=== PATIENT | male | born 1995 | race Caucasian/White ===

== ENCOUNTER 2017-04-22 02:12 | Emergency (ER) | payer BC ==
[2017-04-22 02:43] VITALS: BP 138/79
[2017-04-22 02:46] LABS: Cocaine Ur Negative (NEGATIVE); Urine Barbiturate Negative (NEGATIVE); Urine Benzodiazepines Negative (NEGATIVE); Urine Opiates Negative (NEGATIVE); Urine PCP Negative (NEGATIVE); Urine THC Negative (NEGATIVE)
--- NOTE | 2017-04-22 02:50 | ERNOTE ---
Chest Pain/Cardiac HPI Chief Complaint: Palpitations Source: patient Exam Limitations: no limitations Immunizations: IMMUNIZATION HX Immunizations Up to Date No Allergies/Adverse Reactions: Allergies No Known Allergies Allergy (Unverified 04/22/17 02:18) Home Medications: HOME MEDICATIONS NK [No Home Medication] 04/22/17 [Last Taken Unknown] Narrative: here or an episode of rapid heart rate at work. Pt has had 3 caffeinated sodas and two redbulls all in the past 12 hours and he smokes. He denies any chest pains, or diaphoresis. There is no history of heart disease in his family. By the time he was seen by me he was completely symptom free. He was brought in by EMS his symptoms of rapid heart rate lasted a few minutes Review of Systems - Review of Systems Constitutional: Present: no symptoms reported EYE: Present: no symptoms reported ENT: Present: no symptoms reported Respiratory: Present: no symptoms reported Cardiology: Present: See HPI Gastrointestinal/Abdominal: Present: no symptoms reported Genitourinary: Present: no symptoms reported - Patient's Past Medical History Patient History - Cardiac/Respiratory: No pertinent hx Patient History - Cancer: No Hx of Cancer Patient History - Surgical Procedures: No surgical history - Social History Living Situations: home Smoking Status: Current every day smoker Alcohol Use: none Drug Use: none - Immunizations Immunizations Up to Date: No Physical Exam - Physical Exam General Appearance: Present: wd/wn, alert, no apparent distress Head Exam: Present: normal inspection, no evidence of injury Eye Exam: Normal inspection: bilateral, PERRL: bilateral, EOMI: bilateral Ears, Nose, Throat: Present: normal ENT inspection, normal pharynx Neck: Present: normal inspection, nontender, supple Respiratory: Present: no respiratory distress, normal breath sounds, no accessory muscle use, chest nontender, lungs clear Cardiovascular/Chest: Present: regular rate, rhythm, no murmur, normal peripheral pulses Extremity Exam: Present: normal inspection ED Progress - Results and Orders Patient's Lab Results:: I have reviewed the patient's lab results. - Vital Signs Patient's Vital Signs:: I have reviewed the patient's vital signs. Vital Signs: Vital Signs 04/22/17 04/22/17 04/22/17 02:14 02:21 02:42 Temperature 36.5 C Pulse Rate 64 59 L 68 Respiratory 16 16 Rate Blood Pressure 134/64 138/79 O2 Sat by Pulse 99 100 Oximetry - EKG EKG Comments: NSR - Progress/Reassessment Chief Complaint: Palpitations Plan - Plan Plan: This patient had transient symptoms of rapid heartbeat which has completely dissipated. He denies any chest pains whatsoever. He had been in normocephalic amount of caffeine in a short period of time. He additionally smokes. His exam is completely normal and his EKG is a normal sinus rhythm and there are no ST or T changes. I think this patient needs to avoid all caffeinated and nicotine laden products Departure - Departure Clinical Impression: Palpitations Disposition: Home self-care Condition: Good Instructions: Palpitations, [id number] Additional Instructions: Please refrain from smoking and do not drink any caffeinated beverages. You are off work until you see your primary care doctor. Please be K primary care doctor from the pressure provided to by our staff and go see them on Sunday morning for clearance to go back to work. He is return to the ER should you have symptoms of your rapid heartbeat again.
== END 2017-04-22 03:02 | disposition home or self-care (01) ==
LOC: ER 02:12
DX: R00.2 Palpitations (principal); F17.200 Nicotine dependence, unspecified, uncomplicated

== ENCOUNTER 2017-04-23 23:17 | Emergency (ER) | payer BC ==
[2017-04-23 23:44] LABS: Hematocrit 46.5 % (42.0-52.0); Hemoglobin 15.8 gm/dL (13.5-18.0); Mean Cell Volume 84.2 fl (78-100); Mean Corpuscular Hemoglobin 28.6 pg (27-31); Mean Platelet Volume 10.1 fl (6.0-9.5); Neutrophil # 4.2 K/mm3 (1.3-6.0); Platelet Count 256 K/mm3 (150-450); Red Blood Count 5.52 M/mm3 (4.7-6.0); Red Cell Distribution Width 13.4 % (11.5-14.0); White Blood Count 7.7 K/mm3 (4.0-10.5)
[2017-04-23 23:55] LABS: Prothrombin Time (Patient) 10.7 Seconds (9.4-11.4)
[2017-04-23 23:56] LABS: INR 1.03 INR (0.90-1.10); Partial Thrombolplastin Time 29.1 Seconds (24-32)
[2017-04-24 00:02] LABS: ALT 35 U/L (19-67); AST 19 U/L (0-48); Albumin * 3.9 gm/dl (3.4-5.0); Alkaline Phosphatase * 108 U/L (50-170); Anion Gap 11.5 mmol/L (6.8-13.8); BUN/Creatinine Ratio 10.7 (9.0-21.6); Bilirubin, Total 0.4 mg/dL (0.0-1.1); Blood Urea Nitrogen 12 mg/dL (6-23); Ca. Corrected For Albumin 8.5 mg/dL (8.4-10.2); Calcium * 8.7 mg/dL (7.9-10.9); Carbon Dioxide 29.3 mmol/L (24-32.6); Chloride 104 mmol/L (97-106); Glucose * 107 mg/dL (70-110); Potassium 3.8 mmol/L (3.4-4.6); Sodium 141 mmol/L (132-142); Total Protein 7.6 gm/dL (6.2-8.2); Troponin I Less than 0.017 ng/ml (0.00-0.10)
--- NOTE | 2017-04-24 01:51 | ERNOTE ---
Chest Pain/Cardiac HPI Chief Complaint: Chest Pain Time Seen by Provider: 04/24/17 01:28 Source: patient Exam Limitations: no limitations Immunizations: IMMUNIZATION HX Immunizations Up to Date Yes History of Influenza Vaccine No Hx Pneumococcal Vaccination No Allergies/Adverse Reactions: Allergies No Known Allergies Allergy (Verified 04/23/17 23:25) Home Medications: HOME MEDICATIONS NK [No Home Medication] 04/22/17 [Last Taken Unknown] Narrative: palpitations, shortness of breath, and some chest pressure for the past 2 days. Seen in this ED yesterday, by his PCP today and now again in this ED. Timing: intermittent Severity/Quality: moderate, severe, pressure Location: central Chest Pain Radiation: no radiation Activities at Onset: activity, rest, sleep Modifying Factors - Improves: Present: nothing Associated Symptoms: Present: dizziness, shortness of breath Prior Chest Pain/Cardiac Workup: Reports: prior chest pain, no prior cardiac workup Prior Treatment: Reports: recently seen Review of Systems - Review of Systems Constitutional: Absent: recent illness EYE: Present: no symptoms reported ENT: Present: no symptoms reported Respiratory: Present: See HPI Cardiology: Present: See HPI Gastrointestinal/Abdominal: Present: nausea. Absent: abdominal pain Genitourinary: Present: no symptoms reported Musculoskeletal: Absent: back pain, muscle pain Skin: Present: no symptoms reported Neurological: Present: dizziness/light-headedness Endocrine: Absent: excessive sweating Hematologic/Lymphatic: Present: no symptoms reported Psych: Present: no symptoms reported - Patient's Past Medical History Patient History - Medical: No pertinent hx Patient History - Cardiac/Respiratory: No pertinent hx Patient History - Cancer: No Hx of Cancer Patient History - Surgical Procedures: No surgical history Patient History - Other: None - Social History Living Situations: home Psych History: Hx of Anxiety Smoking Status: Current every day smoker Alcohol Use: none Drug Use: none - Immunizations Immunizations Up to Date: Yes Hx Pneumococcal Vaccination: No History of Influenza Vaccine: No Physical Exam - Physical Exam General Appearance: Present: wd/wn, alert, no apparent distress Head Exam: Present: normal inspection, no evidence of injury Eye Exam: Normal inspection: bilateral Neck: Present: normal inspection, nontender, supple Respiratory: Present: no respiratory distress, no accessory muscle use, lungs clear Cardiovascular/Chest: Present: regular rate, rhythm, no murmur, normal peripheral pulses Gastrointestinal/Abdominal: Present: normal bowel sounds, nontender, nondistended, soft Back Exam: Present: normal inspection, normal range of motion Extremity Exam: Present: normal inspection, normal range of motion, no edema Neurological Exam: Present: alert, oriented, normal mood/affect, no motor/ sensory deficits Skin Exam: Present: normal color, warm/dry Lymphatic Exam: Present: no adenopathy ED Progress - Results and Orders Patient's Lab Results:: I have reviewed the patient's lab results. Results and Orders: Laboratory Tests 04/23/17 04/23/17 04/23/17 23:40 23:40 23:40 WBC 7.7 Hgb 15.8 Hct 46.5 Plt Count 256 PT 10.7 INR (Anticoag Therapy) 1.03 PTT (B[place]linger) 29.1 Sodium 141 Potassium 3.8 Chloride 104 Carbon Dioxide 29.3 Anion Gap 11.5 BUN 12 Creatinine 1.12 Random Glucose 107 Calcium 8.7 Total Bilirubin 0.4 AST 19 ALT 35 Alkaline Phosphatase 108 Troponin I Less than 0.017 Total Protein 7.6 Albumin 3.9 - Vital Signs Patient's Vital Signs:: I have reviewed the patient's vital signs. Vital Signs: Vital Signs 04/23/17 04/24/17 23:18 00:39 Temperature 36.4 C L Pulse Rate 77 72 Respiratory 16 14 Rate Blood Pressure 147/84 131/75 O2 Sat by Pulse 100 98 Oximetry - EKG EKG: NSR EKG read: Interp. by me - X-Ray X-Ray #1 X-Ray: chest Interpretation: Interp. by me X-ray Comments: No acute processes, no pneumothorax, edema or effusion - Progress/Reassessment Chief Complaint: Chest Pain Progress Note-Subjective: 04/24/17 08:13 Holter monitor was placed on patient while in ED. I spoke with patient's PCP Dr. Dia this am. I told him that I placed a 48hour holter and that results would be coming to him. He will follow up with the patient and schedule any further follow up or testing. Departure - Departure Clinical Impression: Palpitations Disposition: Home Follow Up Needed Condition: Good Instructions: Holter Monitoring, Palpitations, [id number] Additional Instructions: See your primary care physician early next week to follow up on the monitoring. Return to ER if you continue to have symptoms Referrals: Peter Dia MD [Non Staff Physicians] -
[2017-04-24 03:35] VITALS: BP 133/72
== END 2017-04-24 02:55 | disposition home or self-care (01) ==
LOC: ER 23:17
DX: R00.2 Palpitations (principal); F17.200 Nicotine dependence, unspecified, uncomplicated